=== PATIENT | male | born 1955 | race Caucasian/White ===

== ENCOUNTER → 2018-03-24 10:23 | Outpatient (CLI) | payer OTHER, MEDICAID, SELFPAY ==
--- NOTE | 2018-03-24 10:27 | DI.RAD.S_ITS ---
PROCEDURE: XR LUMBAR SPINE MIN 4V INDICATIONS: Chronic lumbar pain. TECHNIQUE: 5 views of the lumbar spine were acquired. COMPARISON: Outside Facility, RG, MRI L-SPINE W/O CONTRAST, 04/23/2008, 11:04. FINDINGS: Bones: 5 [id number] vertebrae are present. There is normal bony alignment. No vertebral body compression fractures. No suspicious bony lesions. Degenerative disc disease is present, moderate to severe L3-L4 and L5-S1, mild to moderate at other levels. There are multiple large anterior and lateral bridging osteophytes. Severe degenerative facet of L3 is present at L4-L5 and L5-S1. Soft tissues: Overlying bowel gas pattern is normal. No suspicious soft tissue calcifications. Oblique images: No pars defects. IMPRESSION: 1. Degenerative disc and facet disease. 2. Multiple large anterior and lateral bridging osteophytes in lumbar spine. Dictated by: Viri Loo M.D. on 03/24/2018 at 16:58 Approved by: Viri Loo M.D. on 03/24/2018 at 17:01
== END ==
PROVIDERS: PCP Internal Medicine; Visit Provider Physical Medicine & Rehabilitation
DX: M54.5 Low back pain (principal); M51.36 Other intervertebral disc degeneration, lumbar region; M51.37 Other intervertebral disc degeneration, lumbosacral region; G89.29 Other chronic pain
CPT/HCPCS: 72110

== ENCOUNTER → 2018-04-13 11:20 | Outpatient (CLI) | payer OTHER, MEDICAID, SELFPAY ==
--- NOTE | 2018-04-13 11:24 | DI.MRI.S_ITS ---
PROCEDURE: MR LUMBAR SPINE WO CON INDICATIONS: DDD, lumbar, facet arthritis lumbar spine, peripheral neurop TECHNIQUE: Noncontrast sagittal T1 spin echo and T2 fast echo, sagittal STIR, axial T1 and T2 fast spin echo through the lumbar spine. In cases with scoliosis, additional coronal T2 fast spin echo may be performed. COMPARISON: Outside Facility, RG, MRI L-SPINE W/O CONTRAST, 04/23/2008, 11:04. Formerly [facility], CR, XR LUMBAR SPINE MIN 4V, 03/24/2018, 10:30. FINDINGS: Image quality: Excellent. Alignment and Curvature: There is normal bony alignment. Bone Marrow: Marrow is of normal overall signal. No acute vertebral body compression fractures. Spinal Cord: Conus medullaris terminates at the L1 level. Visualized cord demonstrates normal signal and size. Paraspinous Soft Tissues: No paravertebral masses. Incidental note is made of a retroaortic left renal vein. T12-L1: Mild to moderate loss of disc height and disc signal are seen. Mild to moderate disc bulge is seen. Bridging endplate osteophytes are seen, particularly on the left. No significant neural foraminal or central canal narrowing can be seen. L1-L2: Moderate loss of disc height is seen. Loss of disc signal is seen. Moderate disc bulge is seen, which is eccentric to the left. Bridging endplate osteophytes are seen, particularly on the left. Mild facet hypertrophy is seen. There is moderate right-sided and moderate to severe left-sided neural foraminal narrowing seen. Mild central canal narrowing is seen. These imaging findings have progressed compared to the prior study. L2-L3: Mild loss of disc height is seen. Loss of disc signal is seen. Moderate disc bulge is seen, which is eccentric to the left. Bridging endplate osteophytes are seen, particularly anteriorly and on the left. Mild to moderate facet hypertrophy is seen. Moderate bilateral neural foraminal narrowing is seen, left worse than right. Mild central canal narrowing is seen. These degenerative changes are more prominent than in 2009. L3-L4: A degree of vertebral body fusion can be seen. Prominent bridging endplate osteophytes are seen. Moderate facet joint hypertrophy is seen. There is moderate right-sided and moderate to severe left-sided neural foraminal narrowing seen. There is a degree of impingement seen upon the exiting nerve roots. Moderate central canal narrowing is seen. Compared to 2009, these changes have progressed. L4-L5: Moderate loss of disc height is seen. Loss of disc signal is seen. Bridging endplate osteophytes can be seen anteriorly. Moderate disc bulge is seen, which is eccentric to the right. Moderate facet joint hypertrophy is seen. Moderate bilateral neural foraminal narrowing is seen. Mild central canal narrowing is seen. These imaging findings are slightly progressed compared to 2009. L5-S1: Moderate to severe loss of disc height and disc signal are seen. Bridging endplate osteophytes are seen anteriorly. Moderate to prominent disc bulge is seen, which is eccentric to the left. Moderate facet joint hypertrophy is seen. Moderate to severe bilateral neural foraminal narrowing is seen, left worse than right. There is a degree of impingement seen upon the exiting nerve roots. Moderate central canal narrowing is seen. These imaging findings have progressed compared to the prior study. IMPRESSION: Multiple levels of lumbar spine degenerative change are seen, which have progressed compared to 2009. The prominent bridging of osteophytes are suspicious for diffuse idiopathic skeletal hyperostosis (DISH). Please correlate with known patient history. Moderate to severe bilateral neural foraminal narrowing is seen at L5-S1. Dictated by: Gilberto Antonio M.D. on 04/13/2018 at 11:52 Approved by: Gilberto Antonio M.D. on 04/13/2018 at 12:02
== END ==
PROVIDERS: PCP Internal Medicine; Visit Provider Physical Medicine & Rehabilitation
DX: M51.36 Other intervertebral disc degeneration, lumbar region (principal); M47.816 Spondylosis without myelopathy or radiculopathy, lumbar region; G62.9 Polyneuropathy, unspecified; M96.1 Postlaminectomy syndrome, not elsewhere classified; M48.07 Spinal stenosis, lumbosacral region
CPT/HCPCS: 72148

== ENCOUNTER 2018-06-21 12:40 | Outpatient (CLI) | payer OTHER, MEDICAID, SELFPAY ==
[2018-06-21] VITALS (9 sets, daily range): BP systolic 115–166; BP diastolic 68–107; PULSE 61–76; RESP 16–18; TEMP 36.9; O2SAT 97–100
--- NOTE | 2018-06-21 12:41 | DI.RAD.S_ITS ---
PROCEDURE: PAIN L/S TRANSFORAMINAL INJECT INDICATIONS: Left L4-5 transforaminal FINDINGS: Fluoroscopic spot filming was performed to verify placement of spinal needles at the left L4-5 level, as labeled on the films. Appropriate location(s) of the needle tip(s) was confirmed by injection of iodinated contrast. IMPRESSION: Successful needle tip localization along the left L4-5 neural foramen level for perineural epidural steroid injection turning the left L4 nerve root. Dictated by: Carlos Dominguez M.D. on 06/21/2018 at 15:01 Approved by: Carlos Dominguez M.D. on 06/21/2018 at 15:02
--- NOTE | 2018-06-21 13:51 | P.PCN_ITS ---
Procedures Date/Time Date of procedure: 06/21/18 Time of procedure: 13:45 General Procedure description: PREOP DIAGNOSIS 1. FORMAINAL STENOSIS WITH LE SYMPTOMS POST OP DIAGNOSIS 1. FORMAINAL STENOSIS WITH LE SYMPTOMS PROCEDURES 1. FLUOROSCOPICALLY GUIDED CONTRAST CONTROLLED TRANSFORAMINAL EPIDURAL STEROID INJECTION - LEFT L4/5 PHYSICIAN: Karel Saldana DO INDICATIONS: Jaiden is referred by Dr. Knight for treatment of Foraminal Stenosis with Left LE Symptoms FINDINGS Foraminal Nerve Root Compression secondary to disc disease and facet hypertrophy DESCRIPTION OF PROCEDURE: Following denial of allergy and review of potential side effects and complications, including, but not necessarily limited to, infection, allergic reaction, local tissue breakdown, stroke, temporary or permanent nerve injury, paralysis, and possible , the patient indicated that the patient understood and agreed to proceed. An informed consent document was signed by the patient, witnessed by a nurse, and placed in the patient's chart. Additionally, other treatment options including medications, modalities, and physical therapy were reviewed with the patient. After review of previous anaesthesic history and IV conscious sedation the patie nt was deemed safe to proceed with todays procedure with IV conscious sedation as ASA class II designation. Safety time-out was performed to confirm patient ID, procedure to be performed and site of procedure. IV sedation was accomplished with a combination of 3mg of Versed administered by the RN after DO order, titrated to patient comfort during the course of the procedure while the patient remained responsive to all verbal commands In the prone position following sterile prep and drape of the lumbar region, the left L4/5 posterior neuroforamen was identified fluoroscopically. The skin was anesthetized via a 25-gauge 1.5-inch needle with 1% lidocaine solution. At this point, a 25-gauge 3.5-inch spinal needle was atraumatically introduced and advanced under fluoroscopic guidance through the posterior left L4/5 neuroforamen to approximately the anterior aspect of the canal. Depth was confirmed on lateral view. Following negative aspiration, injection of approximately 1.5 cc of Isovue 200 under live fluoroscopy in the AP view confirmed excellent flow along the nerve root, into the epidural space without vascular or intrathecal uptake observed Radiological data, including multiple fluoroscopic views of the lumbosacral spine, reveal a spinal needle at the left L4/5 posterior neuroforamen. Subsequent views show flow of contrast material flowing superiorly and inferiorly along the nerve root confirming epidural flow. Subsequently, a test dose of 1.5 cc of 1% lidocaine solution was administered and patient was observed for two minutes for signs or symptoms of complications, including abdominal pain, shortness of breath, bilateral upper or lower extremity weakness, nausea and vomiting, prior to steroid injection. At this point, a total of 2cc or 20mg of dexamethasone was injected without incident. The procedure tolerated the procedure well without signs or symptoms of complications prior to transfer to the recovery area continued monitoring without incident. The patient was then transferred to the recovery area where they were observed for an appropriate time after the injection. The patient reported a VAS score of 7 prior to the procedure and a post- procedure VAS of 0. Total Fluoroscopy Time: 20.9 seconds Total Conscious Sedation Time: 24min POST OP INSTRUCTIONS The patient was provided a Pain Log to continue to record their response to the target-specific procedure prior to follow-up visit with their referring physician. Additionally, specific post-injection care instructions and a contact number to our office were provided if concerns arise regarding possible complications associated with the procedure are suspected. Karel Saldana DO Complications: none
[2018-06-21] MEDS: MIDAZOLAM 5 MG/5 ML VIAL IV (13:57)
[2018-06-21] MEDS: DEXAMETHASONE 10 MG/ML VIAL 20 MG INJ (14:03)
[2018-06-21] MEDS: IOPAMIDOL 15 ML VIAL 3 ML INJ (14:03)
[2018-06-21] MEDS: BUPIVACAINE 0.25% (PF) VIAL 2 ML INJ (14:03)
--- NOTE | 2018-06-21 14:09 | PC.NURSE ---
ASSISTING PT OFF TABLE AND TRANSPORTING TO POST PROC AREA IN STABLE CONDITION
--- NOTE | 2018-06-21 14:22 | PC.NURSE ---
Pt returned from procedure awake and alert via wheelchair. Able to move from w/c to chair with standby assist. Resumed monitoring from Kimberly LEDESMA.
--- NOTE | 2018-06-22 15:36 | PC.NURSE ---
FOLLOW UP CALL MADE, LEFT PHONE MSG WITH CLINIC NUMBER AND HOURS IN CASE OF QUESTIONS/CONCERNS.
== END 2018-06-21 14:35 ==
LOC: RAD 12:41
PROVIDERS: PCP Internal Medicine; Visit Provider Physical Medicine & Rehabilitation
DX: M48.061 Spinal stenosis, lumbar region without neurogenic claudication (principal); M51.16 Intervertebral disc disorders with radiculopathy, lumbar region; M96.1 Postlaminectomy syndrome, not elsewhere classified
CPT/HCPCS: 64483; 99152; J1100; J2250; J3010

== ENCOUNTER 2018-08-23 10:57 | Outpatient (CLI) | payer OTHER, MEDICAID, SELFPAY ==
[2018-08-23] VITALS (8 sets, daily range): BP systolic 126–163; BP diastolic 76–97; PULSE 63–75; RESP 16–18; TEMP 36.3; O2SAT 96–99
--- NOTE | 2018-08-23 10:58 | DI.RAD.S_ITS ---
PROCEDURE: PAIN L/SI FACET INJ/BLK 1STL INDICATIONS: SPINAL STENOSIS FINDINGS: Fluoroscopic spot filming was performed to verify placement of spinal needles at the level(s) as labeled on the films. Appropriate location(s) of the needle tip(s) was confirmed by injection of iodinated contrast. IMPRESSION: Fluoroscopy for pain management. Dictated by: Viri Loo M.D. on 08/23/2018 at 14:34 Approved by: Viri Loo M.D. on 08/23/2018 at 14:34
[2018-08-23] MEDS: MIDAZOLAM 5 MG/5 ML VIAL IV (11:55)
[2018-08-23] MEDS: fentaNYL 100 MCG/2 ML INJ 50 MCG IV (11:55)
[2018-08-23] MEDS: IOPAMIDOL 15 ML VIAL 3 ML INJ (12:01)
[2018-08-23] MEDS: BUPIVACAINE 0.5% (PF) VIAL 2 ML INJ (12:02)
[2018-08-23] MEDS: BETAMETHASONE 30 MG/5 ML MDV 12 MG INJ (12:02)
[2018-08-23] MEDS: LIDOCAINE 1% 20 ML INJ 10 ML INJ (12:02)
--- NOTE | 2018-08-23 12:08 | P.PCN_ITS ---
Procedures Date/Time Date of procedure: 08/23/18 Time of procedure: 12:05 General Procedure description: PREOP DIAGNOSIS 1. FACET ARTHROPATHY, 2. AXIAL LBP, 3. MULTILEVEL DDD, POST OP DIAGNOSIS 1. FACET ARTHROPATHY, 2. AXIAL LBP, 3. MULTILEVEL DDD, PROCEDURES 1. FLUORSCOPICALLY GUIDED CONTRAST CONTROLLED FACET JOINT INJECTIONS LEFT L3/4, L4/5, L5/S1 SURGEON: Karel Saldana, DO LOCO Jaiden is referred by Dr. Adams for treatment of Axial LBP FINDINGS Multilevel Facet Arthropathy with Clinically significant axial LBP DESCRIPTION OF PROCEDURE Fluoroscopically guided, contrast-controlled left L3/4, L4/5, L5/S1 facet joint injections. Following review of allergy and review of potential side effects and complications, including, but not necessarily limited to, infection, allergic reaction, local tissue breakdown, stroke, temporary or permanent nerve injury, paralysis, and possible , the patient indicated that the patient understood and agreed to proceed. An informed consent document was signed by the patient, witnessed by a nurse, and placed in the patient's chart. Additionally, other treatment options including medications, modalities, and physical therapy were reviewed with the patient. After review of previous anaesthesic history and IV conscious sedation the patient was deemed safe to proceed with todays procedure with IV conscious sedation as ASA class II designation. Safety time-out was performed to confirm patient ID, procedure to be performed and site of procedure. IV sedation was accomplished with a combination of 5mg of Versed and 50mcg of Fentanyl was administered by the RN after DO order, titrated to patient comfort during the course of the procedure while the patient remained responsive to all verbal commands. In the prone position, following sterile prep and drape of the lumbar region, the posterior aspect of the left L3/4, L4/5, L5/S1 facet joints were identified fluoroscopically. The skin was anesthetized via a 25-gauge 1.5-inch needle with 1% lidocaine solution into the corresponding facet joints. At this point, a 22- gauge 3.5-inch spinal needle was atraumatically introduced and advanced under fluoroscopic guidance into the corresponding facet joints. Following negative aspiration, injections of approximately 0.2cc of Isovue 200 confirmed interarticular placement without vascular uptake. Radiological data, including multiple fluoroscopic views of the lumbosacral spine, reveal a spinal needle at the left L3/4 L4/5, L5/S1 facet joints. Subsequent views show flow of contrast material both superiorly and inferiorly within the joint space without vascular or intrathecal uptake. At this point, a total of 0.5cc including a mixture of 0.25cc Marcaine and 0.25cc betamethasone was injected without complication into each of the corresponding facet joints. The procedure tolerated the procedure well without signs or symptoms of complications prior to transfer to the recovery area continued monitoring without incident. The patient was then transferred to the recovery area where they were observed for an appropriate period of time after the injection. The patient reported a VAS score of 7 prior to the procedure and a post-procedure VAS of 0. Total Fluoroscopy Time: 12.7 seconds Total Conscious Sedation Time: 24min POST OP INSTRUCTIONS The patient was provided a Pain Log to continue to record their response to the target-specific procedure prior to follow-up visit with their referring physician. Additionally, specific post-injection care instructions and a contact number to our office were provided if concerns arise regarding possible complications associated with the procedure are suspected. Karel Saldana DO Complications: none
--- NOTE | 2018-08-23 12:10 | PC.NURSE ---
pt returned via wheelchair awake and alert. Pt able to move to chair from w/c without any assistance. Resumed monitoring from Kimberly LEDESMA.
== END 2018-08-23 13:00 ==
LOC: RAD 10:58
PROVIDERS: PCP Internal Medicine; Visit Provider Physical Medicine & Rehabilitation
DX: M47.816 Spondylosis without myelopathy or radiculopathy, lumbar region (principal); M47.817 Spondylosis without myelopathy or radiculopathy, lumbosacral region; M54.5 Low back pain; M51.36 Other intervertebral disc degeneration, lumbar region; M51.37 Other intervertebral disc degeneration, lumbosacral region
CPT/HCPCS: 64493; 64494; 64495; 99152; J0702; J2250; J3010